=== PATIENT | female | born 1995 | race Caucasian/White ===

== ENCOUNTER 2024-12-03 21:48 | Emergency (ER) | payer OTHER, SELFPAY ==
[2024-12-03 21:58] VITALS: BP 133/96
--- NOTE | 2024-12-04 00:26 | ED.GENMED ---
History of Present Illness
General
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
Source: patient
Exam Limitations: none
Time Seen by Provider: 12/03/24 23:14
Nursing documentation reviewed up to this point in time: agreed with
History of Present Illness
History of Present Illness:
Patient is a 29-year-old female presenting to the emergency department for evaluation of possibly retained tampon. Patient states that she is on day 5 of her menstrual period. She states that she removed the tampon around 3 to 5 PM today and
thought that she had placed another 1. However�when she went to remove that tampon she was unable to find it. Patient presents with concerns that the tampon may have migrated.
Patient states she has spotted a little bit since arrival to emergency department.
Patient denies any abdominal pain or discomfort.
Patient does have a copper IUD.
Review of Systems
Review of Systems
Allergies reviewed?: Yes
All Other Systems: ROS reviewed and negative except as documented in HPI and ROS
Phy Exam
Physical Exam
Physical Exam:
Vitals: Mildly hypertensive, otherwise vital signs are stable. Afebrile
General: Patient is very well appearing, no acute distress. Nontoxic appearing
Skin: Warm and dry, no rashes or lesions
Head: Normocephalic, atraumatic
Throat: Protecting airway
Neck: Normal ROM, no cervical spine tenderness
Cardiac: Regular rate
Pulm: No apparent respiratory distress
Abdomen: Nondistended. Soft and nontender throughout.
Pelvic: External genitalia normal appearing without lesions, ulcerations, or adenopathy. Vaginal vault without lesions or ulcerations. Minimal blood in vaginal vault. No evidence of retained tampon on visual inspection in vaginal vault or cervical
fornices. Cervix appears normal to inspection without bleeding or lesions. Bimanual exam performed without palpable retained tampon in vaginal vault or cervical fornices. No cervical motion tenderness.
Extremities: No evidence of cyanosis or edema
Neuro: Grossly intact
Psychiatric: Normal affect.
Course
Vital Signs
Initial and Last Documented VS:
Initial Vital Signs
Temp Pulse Resp BP Pulse Ox
98.4 F 78 18 133/96 98
12/03/24 21:58 12/03/24 21:58 12/03/24 21:58 12/03/24 21:58 12/03/24 21:58
Last Documented Vital Signs
Temp Pulse Resp BP Pulse Ox
98.4 F 78 18 133/96 98
12/03/24 21:58 12/03/24 21:58 12/03/24 21:58 12/03/24 21:58 12/03/24 21:58
MDM/Problems Addressed
Differential Diagnosis Includes:
Not limited to: Retained foreign body, etc.
MDM/Problems Addressed:
29-year-old female presenting with concerns of retained tampon. She is unsure if she placed tampon this afternoon however cannot find it. Mildly hypertensive, otherwise stable vital signs. Physical exam as above. Pelvic exam performed including
speculum exam as well as bimanual exam without evidence of retained tampon. There was a small amount of blood in vaginal vault. Cervix appears normal with no cervical motion tenderness. Benign abdominal exam. Ultimately�low suspicion for
retained tampon at this time. However�did advise close follow-up with [facility] for further evaluation as needed. Return precautions discussed including fevers, abdominal pain, vaginal discharge, or any signs of infection. Patient stable for
discharge home. Patient comfortable with plan. Expressed verbal understanding.
Chronic conditions affecting care:
N/A
Acute Exacerbation and/or Progression of Chronic Illness:
N/A
*Pulse Oximetry
Patient hypoxic: no
*EKG
Interpreted by ED Provider?: NA
*Salt Grinder Interpretation
Rate: Salt Grinder- N/A
*Critical Care Note
Total Time (30-74mins, 75-104mins- exclusive of procedures): Not Applicable
ED Attending Note
-
Portions of this chart may have been created with voice recognition software.� Occasional wrong word or��sound alike� substitutions may have occurred due to the inherent limitations of voice recognition software.
Discharge Plan
Departure
Patient Disposition: Home (Routine Discharge)
Date of Disposition: 12/04/24
Time of Disposition: 00:18
Patient with high blood pressure during this ER visit?: Yes
Condition: Good
Covid-19: Not Applicable
Discharge Problem:
Retained tampon not found on examination
Instructions: BLOOD PRESSURE
Referrals:
Melisa Guthrie MD [Family Provider] -
Activity Restrictions/Additional Instructions:
Return to the emergency department any fevers, abdominal/pelvic pain, abnormal vaginal discharge, further concerns of retained tampon, worsening in current symptoms, or any other concerns
- There was no visualized tampon on pelvic exam today in the emergency department.
- As discussed�you should follow-up with your [facility] early this week for further evaluation/management to ensure there is no retained product.
Monitor your symptoms closely and return to the emergency department with any acute worsening/new symptoms or any other concerns
Interventions
Interventions:
*Risk Screen - Suicide Last Done: 12/03/24 21:56
*General Assessment Last Done: 12/03/24 21:56
*ED- Fall Risk Assessment Last Done: 12/03/24 21:56
*ED COVID-19 Vaccine History Last Done: 12/03/24 21:56
Discharge Date and Time
Print Language: KHMER
[2024-12-04 00:34] VITALS: BP 107/73
== END 2024-12-04 00:35 | disposition home or self-care (01) ==
LOC: EMR 21:48
PROVIDERS: EMERGENCY PHYSICIAN Emergency Medicine; FAMILY PHYSICIAN Internal Medicine
DX: Z71.1 Person with feared health complaint in whom no diagnosis is made (principal)
CPT/HCPCS: 99282